=== PATIENT | male | born 2005 | race Two or more races ===

== ENCOUNTER 2023-11-26 10:54 | Emergency (ER) | payer OTHER ==
[~2023-11-26] VITALS: Ht 190.5 cm; Wt 98.9 kg
[2023-11-26] MEDS ORDERED: KETOROLAC TROMETHAMINE 30 MG VIAL IM ONE (11:45)
[2023-11-26] MEDS ORDERED: KETOROLAC TROMETHAMINE 30 MG VIAL ONE (11:52)
== END 2023-11-26 13:30 | disposition home or self-care (01) ==
LOC: EMR PED 10:55 → ER 10:55 → EMR PED 11:20
DX: R25.2 Cramp and spasm (principal); J45.909 Unspecified asthma, uncomplicated; G40.802 Other epilepsy, not intractable, without status epilepticus

== ENCOUNTER 2023-11-30 18:12 | Emergency (ER) | payer OTHER ==
[~2023-11-30] VITALS: Ht 190.5 cm; Wt 108.0 kg
[2023-11-30] MEDS ORDERED: DEPAKOTE ER500 MG PO (18:30)
[2023-11-30] MEDS ORDERED: KETOROLAC TROMETHAMINE 30 MG VIAL IM ONE (19:00)
[2023-11-30] MEDS ORDERED: KETOROLAC TROMETHAMINE 30 MG VIAL ONE (19:12)
[2023-11-30] MEDS ORDERED: ACETAMINOPHEN 500 MG GEL..CAP PO STA (21:55)
[2023-11-30] MEDS ORDERED: ACETAMINOPHEN 500 MG GEL..CAP PO ONE (22:45)
== END 2023-12-01 00:58 | disposition home or self-care (01) ==
LOC: EMR PED 18:13 → ER 18:13 → EMR PED 19:01
DX: S50.11XA Contusion of right forearm, initial encounter (principal); W19.XXXA Unspecified fall, initial encounter; Y93.89 Activity, other specified; Y92.098 Other place in other non-institutional residence as the place of occurrence of the external cause; Y99.8 Other external cause status

== ENCOUNTER 2024-01-14 17:04 | Emergency (ER) | payer OTHER ==
[~2024-01-14] VITALS: Ht 190.5 cm; Wt 561.5 kg
[~2024-01-14 17:04] MED LIST: DEPAKOTE ER500 MG PO
[2024-01-14] MEDS ORDERED: KETOROLAC TROMETHAMINE 30 MG VIAL IM ONE (21:00)
[2024-01-14] MEDS ORDERED: NEURONTIN600 M1 PO (22:57)
== END 2024-01-14 23:02 | disposition home or self-care (01) ==
LOC: ER 17:06 → EMR PED 17:10
DX: M25.531 Pain in right wrist (principal); Z87.09 Personal history of other diseases of the respiratory system

== ENCOUNTER → 2024-02-29 | Outpatient (CLI) | payer OTHER ==
[~2024-02-29] MED LIST changes: +NEURONTIN600 M1 PO
== END | disposition home or self-care (01) ==
LOC: SONOGRAMA 09:51
DX: M25.531 Pain in right wrist (principal)

== ENCOUNTER 2024-04-26 14:41 | Emergency (ER) | payer OTHER ==
[~2024-04-26] VITALS: Ht 190.5 cm; Wt 108.9 kg
[2024-04-26] MEDS ORDERED: DEXAMETHASONE SODIUM PHOSPHATE 4 MG/ML VIAL IM ONE (17:15)
[2024-04-26] MEDS ORDERED: KETOROLAC TROMETHAMINE 60 MG VIAL IM ONE ×2 (17:15→17:36)
[2024-04-26] MEDS ORDERED: PROMETHAZINE HCL 50 MG/ML AMPUL IM ONE (17:15)
[2024-04-26] MEDS ORDERED: DEXAMETHASONE SODIUM PHOSPHATE 4 MG/ML VIAL ONE (17:36)
[2024-04-26] MEDS ORDERED: IBU600 MG PO (20:16)
== END 2024-04-26 22:22 | disposition home or self-care (01) ==
LOC: ER 14:44
DX: M25.562 Pain in left knee (principal); G40.802 Other epilepsy, not intractable, without status epilepticus

== ENCOUNTER 2024-06-07 20:28 | Emergency (ER) | payer OTHER ==
[~2024-06-07] VITALS: Ht 190.5 cm; Wt 111.1 kg
[~2024-06-07 20:28] MED LIST changes: +IBU600 MG PO
[2024-06-07] MEDS ORDERED: ZOLOFT25 MG PO (20:42)
[2024-06-07] MEDS ORDERED: METOCLOPRAMIDE HCL 5 MG/ML VIAL IM STA (21:53)
[2024-06-07] MEDS ORDERED: KETOROLAC TROMETHAMINE 60 MG VIAL IM STA (21:53)
== END 2024-06-07 22:25 | disposition home or self-care (01) ==
LOC: ER 20:31
DX: G43.909 Migraine, unspecified, not intractable, without status migrainosus (principal)
CPT/HCPCS: 96372; 99282; J1885; J2765

== ENCOUNTER 2024-08-08 22:40 | Emergency (ER) | payer OTHER ==
[~2024-08-08] VITALS: Ht 182.9 cm; Wt 95.3 kg
[~2024-08-08 22:40] MED LIST changes: +ZOLOFT25 MG PO
[2024-08-08] MEDS ORDERED: GUAIFENESIN 200 MG/10 ML BLIST.PACK PO ONE (23:30)
[2024-08-08] MEDS ORDERED: ACETAMINOPHEN 500 MG GEL..CAP PO ONE (23:30)
[2024-08-09 01:04] LABS: BASO % 0.5 % (0.1-1.2); EOS # 0.23 (0.04-0.54); EOS % 1.7 % (0.7-7.0); HEMATOCRIT 44.9 % (40.1-51.0); HEMOGLOBIN 15.1 g/dL (13.7-17.5); LYMPH # 2.52 (1.18-3.74); LYMPH % 18.6 % (19.3-53.1); MEAN CORPUSCULAR HEMOGLOBIN 27.5 pg (25.6-32.2); MONO # 1.08 (0.24-0.82); NEUT # 9.62 (1.56-6.13); NEUT % 70.9 % (34.0-71.1); PLATELET COUNT 342 K/uL (163-369); RED CELL DISTRIBUTION WIDTH 12.7 % (11.6-14.4)
[2024-08-09] MEDS ORDERED: KETOROLAC TROMETHAMINE 60 MG VIAL IM STA (01:37)
[2024-08-09 01:52] LABS: INFLUENZA A AG NEGATIVE (NEGATIVE)
[2024-08-09 02:37] LABS: COVID-19 AG NEGATIVE (NEGATIVE)
== END 2024-08-09 02:49 | disposition home or self-care (01) ==
LOC: ER 23:06
PROVIDERS: General Practice
DX: B34.9 Viral infection, unspecified (principal); R05.8 Other specified cough; G40.802 Other epilepsy, not intractable, without status epilepticus; Z20.822 Contact with and (suspected) exposure to COVID-19